=== PATIENT | female | born 1975 | race American Indian/Alaskan Native ===

== ENCOUNTER 2017-01-07 15:26 | Emergency (ER) | payer SELFPAY ==
[2017-01-07 16:51] LABS: Basophils % (Auto) 0.9 % (0.0-1.8); Eosinophils % (Auto) 1.2 % (0.0-4.3); Hematocrit 42.4 % (30.3-42.9); Hemoglobin 14.1 gm/dl (10.1-14.3); Mean Corpuscular HGB Conc 33 % (30-34); Mean Corpuscular Hemoglobin 26 pg (28-32); Mean Corpuscular Volume 78 fl (79-97); Platelet Count 346 K/mm3 (140-440); Red Blood Count 5.43 M/mm3 (3.65-5.03); Red Cell Distribution Width 13.5 % (13.2-15.2); White Blood Count 6.1 K/mm3 (4.5-11.0)
[2017-01-07 16:57] LABS: Anion Gap 19 mmol/L; BUN/Creatinine Ratio 11.11; Blood Urea Nitrogen 10 mg/dL (7-17); Carbon Dioxide 30 mmol/L (22-30); Chloride 93.4 mmol/L (98-107); Glucose 125 mg/dL (65-100); Potassium 3.7 mmol/L (3.6-5.0); Sodium 139 mmol/L (137-145)
[2017-01-07] MEDS ORDERED: FLEXERIL PO ONE (21:17)
[2017-01-07] MEDS ORDERED: NITROSTAT SL ONE (21:19)
[2017-01-07] MEDS ORDERED: HCTZ PO ONE (21:20)
--- NOTE | 2017-01-07 21:22 | Emergency Department Report ---
HPI - General Chief Complaint: Chest Pain Time Seen by Provider: 01/07/17 20:49 - HPI HPI: The patient is a 41-year-old female who presents for evaluation of chest pain. The patient reports left-sided chest pain for the past 3 days, on and off, sharp in quality, 7/10 in severity, radiating to the left arm. She states that her most recent episode began at 11 AM his morning, greater than 8 hours prior to my evaluation. The patient denies fever, trauma to the chest wall, dyspnea, syncope, hemoptysis, unilateral leg swelling, oral contraceptive use, recent immobilization, history of DVT or PE, recent cancer. ED Past Medical Hx - Past Medical History Hx Hypertension: Yes Additional medical history: PCOS? - Surgical History Past Surgical History?: No - Social History Smoking Status: Never Smoker Substance Use Type: None - Medications Home Medications: Home Medications Medication Instructions Recorded Confirmed Last Taken Type Carvedilol [Coreg] 12.5 mg PO BID 12/06/15 12/06/15 Unknown History ALBUTEROL Inhaler [ProAir HFA 1 puff IH Q4H PRN #1 inha 12/07/15 Unknown Rx Inhaler] Azithromycin [Zithromax Z-HEIDI] 250 mg PO DAILY #6 tab 12/07/15 Unknown Rx Lisinopril [Zestril TAB] 40 mg PO QDAY #30 tablet 12/07/15 Unknown Rx predniSONE [Deltasone] 20 mg PO BID #10 tablet 12/07/15 Unknown Rx Cyclobenzaprine HCl [Flexeril 5 MG 5 mg PO Q8HR PRN #14 tab 01/07/17 Unknown Rx TAB] Hydrochlorothiazide [HCTZ] 25 mg PO QDAY #30 tablet 01/07/17 Unknown Rx Ibuprofen [Motrin] 800 mg PO Q8HR PRN #14 tablet 01/07/17 Unknown Rx ED Review of Systems ROS: Stated complaint: CHEST AND LEFT ARM PAIN Other details as noted in HPI Constitutional: denies: fever ENT: denies: throat or neck pain Respiratory: denies: cough, shortness of breath Cardiovascular: reports chest pain Endocrine: denies unexplained weight loss or gain Gastrointestinal: denies: abdominal pain, nausea Genitourinary: denies: dysuria Musculoskeletal: denies: leg swelling Skin: denies: rash Neurological: denies: headache Hematological/Lymphatic: denies: easy bleeding or easy bruising Psych: denies sadness or hopelessness Physical Exam - Physical Exam Vital Signs: Vital Signs 01/07/17 15:32 Temperature 98.2 F Pulse Rate 108 H Respiratory 20 Rate Blood Pressure 157/108 O2 Sat by Pulse 98 Oximetry Physical Exam: General: well-nourished, well-developed, no acute distress Head: Normocephalic, atraumatic Eyes: normal sclera ENT: Mucous membranes are pink and moist Neck: trachea midline, neck supple, No neck stiffness, no cervical adenopathy Respiratory: Breath sounds equal bilaterally, no wheezing, rales, or rhonchi Cardio: S1 and S2 present, no murmurs, rubs, gallops, capillary refill is brisk Abdomen: Normoactive bowel sounds, soft abdomen, no rigidity, no guarding or rebound tenderness Chest WALL/Back: No tenderness to palpation of the chest wall, no CVA tenderness with percussion, chest pain elicited with adduction and internal rotation of the left arm at the shoulder joint Musc: No pitting edema Skin: No rash Neuro: no facial drooping, normal speech Psych: Normal affect ED Course Vital Signs 01/07/17 15:32 Temperature 98.2 F Pulse Rate 108 H Respiratory 20 Rate Blood Pressure 157/108 O2 Sat by Pulse 98 Oximetry ED Medical Decision Making - Lab Data Result diagrams: 01/07/17 16:29 01/07/17 16:29 - Medical Decision Making The patient was seen and examined by myself. The patient is placed on a cardiac cath lab manager and continuous pulse ox. On initial evaluation, the patient was found to be in no distress. EKG was negative for findings suggestive of acute cardiac infarct. Labs and imaging are obtained. The patient is given a tablet of Flexeril for her chest pain and has not as of elevated blood pressure. Chest x-ray is negative for pneumothorax, focal consolidation, pulmonary vascular congestion, pleural effusion, or other obvious acute cardiopulmonary disease process. Lab results were non-concerning including levels of troponin, WBC, hemoglobin, hematocrit, electrolytes, renal function. The patient was reevaluated and reported that their symptoms were markedly improved. As the patient has a FABIENNE risk score 0, and a well's score less than 2, the patient is at low risk of ACS or pulmonary emboli etiology of their symptoms. The patient is stable for discharge with outpatient follow-up. The patient is given follow- up and return instructions. The patient expressed understanding and agreed with the plan. The patient is discharged in stable condition. Critical care attestation.: If time is entered above; I have spent that time in minutes in the direct care of this critically ill patient, excluding procedure time. ED Disposition Clinical Impression: Acute chest pain, Asymptomatic hypertensive urgency Disposition: DISCHARGED TO HOME OR SELFCARE Is pt being admited?: No Does the pt Need Aspirin: No Condition: Stable Instructions: Chest Pain (ED), Chronic Hypertension (ED) Additional Instructions: Follow up with the referred cook at school Dr. Paul or another cook at school of your choosing. Referrals: JD PAUL MD [Staff Physician] - 3-5 Days Time of Disposition: 21:18
[2017-01-07 21:45] VITALS: BP 160/100
--- NOTE | 2017-01-08 08:38 | XRay Report ---
AP CHEST: AP view of the chest demonstrates a normal mediastinal and cardiac contour with clear lungs and normal bony and soft tissue structures. IMPRESSION: Normal AP chest.
== END 2017-01-07 21:49 | disposition home or self-care (01) ==
LOC: ED 15:26
DX: R07.9 Chest pain, unspecified (principal); I10 Essential (primary) hypertension
CPT/HCPCS: 36415; 71010; 80048; 84484; 85025; 93005; 93010